=== PATIENT | male | born 1980 | race Caucasian/White ===

== ENCOUNTER → 2018-02-16 13:43 | Outpatient (CLI) | payer BC, SELFPAY ==
--- NOTE | 2018-02-16 13:46 | MR_ITS ---
MR lumbar spine wo con, MR 3-d myelogram/MRCP HISTORY: Low back pain, tingling/ numbeness both legs, injury while heavy lifting. Symptoms X3 weeks. ITS.REASON: NUMBNESS IN BOTH LEGS ORDERING PHYSICIAN: Ryan Gonzalez PATIENT AGE: 37 years COMPARISON: None TECHNIQUE: Standard multiplanar multiecho sequences are performed without contrast. 3-D MIP and myelographic images are also rendered and reviewed FINDINGS: There is normal alignment. The spinal cord ends at the L1 level 1 level. There is mild degenerative disc disease at T11-T12 T12-L1 and L1-L2. Small anterior osteophytes are noted at L1-L2 with anterior bulging disc. Mild facet hypertrophic changes are present at L2-L3 and L3-L4. L4-L5: Mild degenerative disc disease with minimal bulging disc and minimal central disc protrusion with mild facet and ligamentum flavum hypertrophy with mild bilateral foraminal narrowing. L5-S1: Minimal bulging disc. No disc herniation or canal stenosis. IMPRESSION: 1. Mild lower thoracic and lumbar spondylosis as described above. 2. No canal stenosis or extruded herniated disc 3. Minimal central disc protrusion L4-L5 without neural impingement with mild bilateral foraminal narrowing at that level IMPRESSION:
== END ==
PROVIDERS: Family Provider Internal Medicine; PCP Family Medicine; Visit Provider Family Medicine
DX: R20.0 Anesthesia of skin (principal); M54.42 Lumbago with sciatica, left side; M54.41 Lumbago with sciatica, right side
CPT/HCPCS: 72148; 76376

== ENCOUNTER 2021-10-11 10:54 | Emergency (ER) | payer BC, SELFPAY ==
[2021-10-11 11:14] VITALS: BP 148/78; PULSE 90; RESP 19; TEMP 37; O2SAT 98; BMI 31.6
--- NOTE | 2021-10-11 11:35 | HMH.EDUTC ---
[facility] [place] Disposition Clinical Impression: Dental abscess Disposition: Home, Self-Care Condition on Discharge: Good Instructions: Tooth Abscess Additional Instructions: Warm compresses on the side of jaw may help with pain and discomfort Take antibiotics as prescribed Follow up with Dentist for further evaluation and treatment Follow up with Family Doctor if needed Straight to ER if any life threatening symptoms Return if needed Prescriptions: Ibuprofen [Ibuprofen 800mg Tablet] 800 mg PO Q8HP PRN #20 tab PRN Reason: Moderate Pain Transmission Status: [id number] Amoxicillin/Potassium Clav [Augmentin 875-125 Tablet] 1 tab PO Q12H 10 Days #20 tab Transmission Status: [id number] Referrals: Ryan Gonzalez [Primary Care Provider] - As needed Forms: Work/School Release Time of Disposition: 11:49 Medical Decision Making - Jamil Inquiry Pt receiving controlled substance: No Jamil was queried for this patient: No Vital Signs: 10/11/21 11:14 Temperature 98.6 F Temperature Source Oral Pulse Rate [Right Brachial] 90 Respiratory Rate 19 Blood Pressure [Right Arm] 148/78 H Blood Pressure Mean [Right Arm] 101 Blood Pressure Source [Right Arm] Automatic Cuff Blood Pressure Position [Right Arm] Sitting 02 Sat by Pulse Oximetry 98 Oxygen Delivery Method Room Air [facility] [place] HPI - General Stated complaint: jaw pain, h/a Time Seen by Provider: 10/11/21 11:41 Mode of Arrival: Ambulatory Source of Information: Patient Limitations: No Limitations Description of Symptoms (Recalled from Triage Doc. by RN): PATIENT C/O LOWER JAW PAIN THAT RADIATES UP SIDE OF HEAD AND CAUSING HEADACHES MONDAY HEENT Symptoms (Recalled from RN notes): Yes Resp Symptoms (Recalled from RN notes): No Skin Symptoms (Recalled from RN notes): No MS Symptoms (Recalled from RN notes): No Functional Status (Recalled from RN notes): WNL - History of Present Illness Provider Complaint: Patient states that he thinks he may have a dental abscess States that he has been having pain in his right lower jaw/gumline and can feel a knot in his gums States that he hasnt broken a tooth or anything and does not have any back teeth but the tenderness and redness in his gum is at the base of his tooth States that he has been taking ibuprofen and called the dentist this morning but they couldnt get him in and told him to come here - Related Data Previous Rx's Medication Instructions Recorded Amoxicillin/Potassium Clav 1 tab PO Q12H 10 Days #20 tab 10/11/21 [Augmentin 875-125 Tablet] Ibuprofen [Ibuprofen 800mg 800 mg PO Q8HP PRN #20 tab 10/11/21 Tablet] Allergies Allergy/AdvReac Type Severity Reaction Status Date / Time No Known Allergies Allergy Verified 10/11/21 11:21 - Worker's Comp Is this a Worker's Comp case?: No [facility] History - Hepatitis A Screen Drug use history?: No High risk sexual behaviors?: No History of sexually transmitted infection?: No Currently employed?: No Childcare worker?: No Do you have indoor plumbing?: Yes Do you have electricity?: Yes Attestation statement:: This patient has been screened for Hepatitis A risk factors. I have reviewed the patient's past medical history: Yes ROS Obtained: Yes All systems reviewed & no additional complaints, Yes Systems reviewed as appropriate & no additional complaints - Constitutional Constitutional: Reports system reviewed and no additional complaints, except as docu, Denies body ache, Denies chills, Denies fatigue, Denies fever(s), Reports headache(s) - ENT Ears, Nose, Mouth, and Throat: Reports system reviewed and no additional complaints, except as docu, Reports facial pain, Reports other (Pain in right jaw/gum area with redness and swelling at base of tooth) - Cardiovascular Cardiovascular: Reports system reviewed and no additional complaints, except as docu - Respiratory Respiratory: Reports system reviewed and no
[2021-10-11 11:51] VITALS: BP 148/78; PULSE 90; RESP 19; TEMP 37; O2SAT 98
== END 2021-10-11 11:52 | disposition home or self-care (01) ==
PROVIDERS: Emergency Provider Nurse Practitioner; PCP Family Medicine
DX: K04.7 Periapical abscess without sinus (principal)
CPT/HCPCS: 99202; G0463

== ENCOUNTER 2022-10-05 09:26 | Emergency (ER) | payer BC, SELFPAY ==
[2022-10-05 10:30] VITALS: BP 141/90; PULSE 83; RESP 19; TEMP 36.7; O2SAT 98; BMI 31.7
--- NOTE | 2022-10-05 10:49 | EXP.UTC ---
Discharge Plan Disposition Patient Disposition: Home, Self-Care Condition: Good Prescriptions Prescriptions: New prednisone [prednisone] 20 mg tablet 20 mg PO BID 5 Days Qty: 10 0RF amoxicillin-pot clavulanate 875-125 mg Tablet 1 tab PO Q12H Qty: 20 0RF albuterol sulfate [Proventil HFA] 90 mcg/actuation HFA aerosol inhaler 1 inh inhalation Q6H PRN (Reason: shortness of breath or wheezing) Qty: 8.5 0RF benzonatate 100 mg capsule 100 mg PO TID PRN (Reason: cough) Qty: 30 0RF Referrals Follow up/Referrals: Ryan Gonzalez [Primary Care Provider] - See instructions Activity Restrictions/Add. Instructions Additional Instructions/Restrictions: Start antibiotic today. Be sure to complete entire prescription even if feeling better Monitor temp. Tylenol every 4 hours as needed and / or ibuprofen every 6 hours as needed ( As long as your primary care physician has told you that it ok to take both. For fever/aches/pains ER if no less than 101 despite Tylenol or Motrin Humidifier/vaporizer or hot steamy shower Inhaler every 4-6 hours as needed like we discussed. If unsure how to use it, ask pharmacist to demonstrate how. Should help open airways and improve cough, wheezing, and shortness of breath *Tessalon Perles will not cause drowsiness but use at bedtime to help stop cough so that you may get some rest. *Start steroid today. Helps with inflammation therefore, cough and wheezing. Follow directions on the package. Reviewed side effects. Patient reports taking them before. Follow up IMMEDIATELY for new or worsening of symptoms OR no noticeable improvement over the next 48-72 hours. 911 immediately for any life threatening symptoms such as chest pain or difficulty breathing Clinical Impressions Clinical Impression: Sinusitis, Bronchitis Stand Alone Forms Stand Alone Forms: Work/School Release Instructions Patient Instructions: DI for Sinusitis, Sinusitis, Acute Bronchitis Discharge ED Provider: Audrey Reyes [facility] General Stated complaint: congestion, wheezing, sob, cough Mode of Arrival: Ambulatory Source of Information: Patient Limitations: No Limitations Time Seen by Provider: 10/05/22 10:49 Description of Symptoms (Recalled from Triage Doc. by RN): PATIENT C/O COUGH, BODY ACHES, AND CHEST CONGESTION X 2 DAYS HEENT Symptoms (Recalled from RN notes): No Resp Symptoms (Recalled from RN notes): Yes Skin Symptoms (Recalled from RN notes): No MS Symptoms (Recalled from RN notes): No Functional Status (Recalled from RN notes): WNL History of Present Illness Provider Complaint: Patient states that he has been having sinus issues for a week or so States that for the last couple of days he has felt like it was trying to move into his chest States that he felt a little wheezy last night so today when he was still not feeling well he came in to get checked Related Data Previous Rx's Medication Instructions Recorded albuterol sulfate 90 mcg/actuation 1 inh inhalation Q6H PRN shortness 10/05/22 aerosol inhaler (Proventil HFA) of breath or wheezing #8.5 grams amoxicillin 875 mg-potassium 1 tab PO Q12H #20 tabs 10/05/22 clavulanate 125 mg tablet benzonatate 100 mg capsule 100 mg PO TID PRN cough #30 caps 10/05/22 prednisone 20 mg tablet 20 mg PO BID 5 days #10 tabs 10/05/22 Allergies Allergy/AdvReac Type Severity Reaction Status Date / Time No Known Allergies Allergy Verified 10/11/21 11:21 Worker's Comp Is this a Worker's Comp case?: No PFSH PFSH Medical History (Updated 10/05/22 @ 10:57 by Audrey Reyes APRN) No significant past medical history Social History (Updated 10/05/22 @ 10:42 by Christianne Ascencio RN) Smoking Status: Unknown if ever smoked alcohol intake: never current occupational status: other Travel in the last 8 weeks: None ROS Obtained: Yes All systems reviewed & no additional complaints ex
[2022-10-05 11:00] VITALS: BP 141/90; PULSE 83; RESP 19; TEMP 36.7; O2SAT 98
== END 2022-10-05 11:03 | disposition home or self-care (01) ==
PROVIDERS: Emergency Provider Nurse Practitioner; PCP Family Medicine
DX: J02.9 Acute pharyngitis, unspecified (principal); R50.9 Fever, unspecified; R05.9 Cough, unspecified; R51.9 Headache, unspecified; M79.10 Myalgia, unspecified site; R09.81 Nasal congestion; Z79.51 Long term (current) use of inhaled steroids; Z79.52 Long term (current) use of systemic steroids
CPT/HCPCS: 99213; G0463

== ENCOUNTER 2025-02-10 09:07 | Emergency (ER) | payer SELFPAY ==
[2025-02-10 09:12] VITALS: BP 169/125; PULSE 98; O2SAT 98
[2025-02-10 09:14] VITALS: BP 153/120; PULSE 99; RESP 20; TEMP 36.8; O2SAT 99; BMI 29.6
[2025-02-10 09:15] VITALS: BP 153/120; PULSE 93; O2SAT 98
[2025-02-10 09:30] VITALS: BP 148/118; PULSE 95; O2SAT 97
[2025-02-10] MEDS: LIDOCAINE 1% 20ML MDV 20 ML IJ (09:30)
[2025-02-10] MEDS: MUPIROCIN 2% OINTMENT 22GM TUBE 22 GM TP (09:30)
[2025-02-10] MEDS: AMOXICILLIN/CLAVULANATE POTASSIUM 875/125MG TABLET 1 EACH PO (09:30)
--- NOTE | 2025-02-10 09:40 | HMH.EDGENADL ---
Discharge Plan Disposition Patient Disposition: Home, Self-Care Condition: Good Prescriptions Prescriptions: New amoxicillin-pot clavulanate 875-125 mg tablet 1 tab PO BID Qty: 20 0RF No Action amoxicillin-pot clavulanate 875-125 mg Tablet 1 tab PO Q12H Qty: 20 0RF Referrals Follow up/Referrals: Ryan Gonzalez MD [Primary Care Provider] - See instructions Activity Restrictions/Add. Instructions Additional Instructions/Restrictions: You were evaluated in the emergency department today. Please apply the antibiotic ointment provided to you twice daily. package pick up your prescription for Augmentin and take twice daily as prescribed. Take Tylenol and ibuprofen as needed for pain. Keep your wound clean and dry. Do not submerge under any water. Expect that it may continue draining. Return to the emergency department for new or worsening symptoms. Clinical Impressions Clinical Impression: Paronychia Instructions Patient Instructions: DI for Paronychia, DI for Incision and Drainage of a Skin Abscess, DI for Skin Abscess Print Language Print Language: [place] Island[place] Discharge ED Provider: Vale Baltazar General Adult HPI General Chief complaint: Skin/Abscess/Foreign Body Stated complaint: left thumb swelling/draining Time Seen by Provider: 02/10/25 09:20 Mode of Arrival: Ambulatory Source of Information: Patient Description of Symptoms (Recalled from ER Triage Doc. by RN): pt has infected hangnail x2-3 days on left thumb, no fever chills or red streaks History of Present Illness HPI narrative: This patient is a 44-year-old male who denies significant past medical history presenting to the emergency department for evaluation with concern for an infected hangnail to his left thumb. Patient states that he bit off the hangnail 2 to 3 days ago, it became red, swollen, and angry, and now he has a small area that he tried to janae himself but was unable to. No fevers or systemic symptoms. No other concerns or complaints noted at this time. Related Data Previous Rx's ?Medication ?Instructions ?Recorded amoxicillin 875 mg-potassium 1 tab PO Q12H #20 tabs 10/05/22 clavulanate 125 mg tablet amoxicillin 875 mg-potassium 1 tab PO BID #20 tabs 02/10/25 clavulanate 125 mg tablet Allergies Allergy/AdvReac Type Severity Reaction Status Date / Time No Known Allergies Allergy Verified 10/11/21 11:21 [facility] Disclaimer: The information contained in this section may have been updated after the patient was seen, as this information can be updated by other users. Medical History No significant past medical history Social History Smoking Status: Never smoker alcohol intake: never current occupational status: other Travel in the last 8 weeks: None Have you lived/traveled outside [place] in past 30 days?: No Contact w/someone who lives/traveled outside US past 30 days?: No Exposure to someone with infectious disease in past 14 days?: No Do you have a fever (greater than 100.4 F or 38 C)?: No Have you tested positive for COVID-19: No Exposed to someone with COVID-19 in past 14 days?: No Do you have a sore throat?: No Do you have a cough?: No Do you have any weakness?: No Do you have any diarrhea?: No Are you experiencing any unusual bleeding?: No Do you have any muscle aches/pain?: No Do you have any abdominal pain?: No Are you experiencing loss of taste or smell?: No ROS Obtained: Yes All systems reviewed & no additional complaints except as documented Physical Exam General General appearance: alert and in no apparent distress Head Head exam: atraumatic and normocephalic Eye Eye exam: Present normal appearance, PERRL and EOMI ENT ENT exam: Present normal exam, normal oropharynx, mucous membranes moist and normal external ear exam Neck Neck exam: Present normal inspection, full ROM and trachea midline; Absent tenderness Chest Chest inspection: Present normal inspection and symmetric chest wall rise; Absent tenderness Respiratory Respiratory exam: Present normal lung sounds bilaterally; Absent respiratory distress, wheezes, stridor or accessory muscle use Cardiovascular Cardiovascular exam: Present regular rate and normal rhythm Abdominal Exam Abdominal exam: Present soft; Absent distention, tenderness or guarding Extremities Exam Extremities exam: Present full ROM and normal capillary refill; Absent tenderness or edema Expanded Upper Extremity Exam Left: Comment: L thumb paronychia on radial aspect of thumb, localized erythema and fluctuance without significant spread up the thumb. All compartments soft, neurovascularly intact distally. Back Exam Back exam: Present normal inspection and full ROM; Absent tenderness Neurological Exam Neurological exam: Present alert, oriented X3, CN II-XII intact and normal gait; Absent motor sensory deficit Psychiatric Psychiatric exam: Present normal affect and normal mood Skin Skin exam: Present warm and dry Medical Decision Making Medical Records Medical records reviewed: Yes I reviewed the patient's medical records. Screening: Per USPSTF and CDC recommendations, given the prevalence of disease in our region, it is our hospital?s policy to screen for HIV and viral Hepatitis for all patients aged 18 and over and those with ongoing risk factors. Jamil Inquiry Pt receiving controlled substance: No Vital Signs: 02/10/25 09:12 02/10/25 09:14 02/10/25 09:15 Temperature 98.3 F Temperature Source Oral Pulse Rate 98 H 93 H Pulse Rate [Left Radial] 99 H Respiratory Rate 20 Blood Pressure 169/125 H 153/120 H Blood Pressure [Right Arm] 153/120 H Blood Pressure Mean [Right Arm] 131 02 Sat by Pulse Oximetry 98 99 98 Oxygen Delivery Method Room Air Room Air Room Air 02/10/25 09:30 02/10/25 10:08 Temperature 98.2 F Temperature Source Pulse Rate 95 H 97 H Pulse Rate [Left Radial] Respiratory Rate 16 Blood Pressure 148/118 H 149/115 H Blood Pressure [Right Arm] Blood Pressure Mean [Right Arm] 02 Sat by Pulse Oximetry 97 Oxygen Delivery Method Room Air Lab Data Lab results reviewed: Yes I reviewed the patient's lab results. Orders (Tests/Meds): ED MEDICATIONS Discontinued Medications Generic Name Dose Route Start Last Admin Trade Name Freq PRN Reason Stop Dose Admin Amoxicillin/Clavulanate Potassium 1 each 02/10/25 09:24 02/10/25 09:30 Amoxicillin/Clavulanate Potassium 875/125mg Tablet PO 02/10/25 09:25 1 each ONCE ONE Administration Lidocaine HCl 20 ml 02/10/25 09:24 02/10/25 09:30 Lidocaine 1% 20ml Mdv IJ 02/10/25 09:25 20 ml ONCE ONE Administration Mupirocin 22 gm 02/10/25 09:25 02/10/25 09:30 Mupirocin 2% Ointment 22gm Tube TP 02/10/25 09:26 22 gm ONCE ONE Administration ORDERS Category Date Time Status Wound Culture and Gram Stain Stat Micro 02/10/25 09:25 Received Medical Decision Narrative: In summary, this patient is a 44-year-old male presenting to the Emergency Department for evaluation of left thumb redness, pain, swelling. Differential diagnoses considered include but are not limited to ANTON, eponychia, cellulitis, abscess. Ruling out the most morbid conditions drove assessment. On exam, patient has paronychia of the left thumb. After informed consent was obtained and risk versus benefit was explained, patient elected to receive digital block of the left thumb and have incision and undergo incision and drainage. Workup included wound culture. I considered obtaining basic lab evaluation however based on reassuring history and exam I do not feel this is indicated.. I perform digitaled block, which was tolerated well with good anesthesia achieved. Incision and drainage performed of the paronychia. Patient's wound was covered with topical mupirocin and a sterile dressing. At this time, I feel patient is appropriate for discharge home with prescription for Augmentin. Strict return precautions given as well as instructions for wound care Procedures Risk/Benefits of Procedure(s) Were Explained: Yes Nerve Block Nerve Block 1: Time out performed: Yes Local Anesthetic: lidocaine 1% Amount of anesthesia used (mL): 3 Side: Left Nerve Blocks: digital Procedure Successful: Yes Patient Tolerated Procedure: well and no complications Complications: none Additional Comments: Landmarks visualized and palpated, negative aspiration for blood Abscess I/D Site: hand Side (if applicable): left (thumb) Technique: incised with #11 blade Amount of fluid expressed (mL): 1 Irrigation: Yes Packing used?: none Complications: other (none) Critical Care Critical Care Time Critical Care Time: No
--- NOTE | 2025-02-10 09:48 | PC.NURSE ---
AT [employer] FOR I&D
[2025-02-10 10:08] VITALS: BP 149/115; PULSE 97; RESP 16; TEMP 36.8
== END 2025-02-10 10:12 | disposition home or self-care (01) ==
PROVIDERS: Emergency Provider Emergency Medicine; PCP Emergency Medicine
DX: L03.012 Cellulitis of left finger (principal); M79.645 Pain in left finger(s)
CPT/HCPCS: 26010; 87070; 87077; 87186; 87205; 99283